=== PATIENT | male | born 1970 | race Caucasian/White ===

== ENCOUNTER → 2023-10-17 07:43 | Outpatient (CLI) | payer OTHER, SELFPAY ==
[2023-10-17 09:24] LABS: Hematocrit 43.8 % (41-53); Hemoglobin 15.4 g/dL (13.5-17.5); Mean Corpuscular HGB Conc 35.1 % (30-36); Mean Corpuscular Hemoglobin 31.2 PG (26-34); Platelet Count 179 X10^3/uL (150-400); Red Blood Cell Count 4.91 X10^6/uL (4.5-5.9); White Blood Cell Count 7.3 X10^3/uL (4.5-11.0)
[2023-10-17 09:25] LABS: Add Manual Diff / Slide Review YES
[2023-10-17 09:31] LABS: Hemoglobin A1C% w Est Avg Glu 5.4 % (4.0-6.0)
[2023-10-17 09:40] LABS: Alanine Aminotransferase 22 IU/L (<50); Albumin 3.9 g/dL (3.5-5.0); Albumin Globulin Ratio 1.3 (1.0-2.8); Alkaline Phosphatase 70 U/L (38-126); Aspartate Aminotransferase 26 IU/L (17-59); BUN Creatinine Ratio 26.1 (6-22); Bilirubin Total 0.9 mg/dL (0.2-1.3); Blood Urea Nitrogen 23 mg/dL (9-20); Calcium 9.1 mg/dL (8.4-10.2); Carbon Dioxide 29 mmol/L (22-32); Chloride 102 mmol/L (98-107); Cholesterol 146 mg/dL (140-199); Estimated Glomerular Filt Rate > 60 mL/min (>60); Globulin 2.9 g/dL (1.7-4.1); Glucose 102 mg/dL (70-100); HDL Cholesterol 43 mg/dL (40-60); HEMOLYSIS < 15 (0-50); LDL Cholesterol Calculated 90 mg/dL (<100); Potassium 3.9 mmol/L (3.4-5.1); Sodium 137 mmol/L (137-145); Total Protein 6.8 g/dL (6.3-8.2); Triglycerides 65 mg/dL (35-150)
[2023-10-17 10:05] LABS: Neutrophils Absolute Manual 3139 /uL (3000-5900); Platelet Estimate Adequate on smear; RBC Morphology Normal Morphology; Total Cells Counted 100
[2023-10-17 10:12] LABS: TSH w/ Reflex to FT4 1.94 uIU/mL (0.47-4.68)
== END ==
PROVIDERS: PCP Family Medicine; Referring Provider Family Medicine; Visit Provider Family Medicine
DX: E03.9 Hypothyroidism, unspecified (principal); E66.9 Obesity, unspecified
CPT/HCPCS: 36415; 80053; 80061; 83036; 84443; 85007; 85025

== ENCOUNTER → 2024-02-01 17:00 | Outpatient (CLI) | payer OTHER, SELFPAY ==
[2024-02-01 18:06] LABS: Influenza A - CEPHEID Flu A NEGATIVE (NEGATIVE); Influenza B - CEPHEID Flu B NEGATIVE (NEGATIVE); Respiratory Syncytial Virus Negative (Negative)
[2024-02-01 18:14] LABS: COVID-19 CEPHEID 4-PLEX PCR Negative (Negative)
== END ==
PROVIDERS: PCP Family Medicine; Visit Provider Physician Assistant Surgical
DX: R05.9 Cough, unspecified (principal)
CPT/HCPCS: 0241U

== ENCOUNTER 2024-05-11 10:20 | Emergency (ER) | payer OTHER, SELFPAY ==
[2024-05-11 10:28] VITALS: BP 141/90; PULSE 67; RESP 20; TEMP 36.6; O2SAT 98; BMI 40.8
--- NOTE | 2024-05-11 10:29 | DI.RAD.S_ITS ---
PROCEDURE: XR CHEST 1V INDICATIONS: chest pain TECHNIQUE: One view of the chest was acquired. COMPARISON: None. FINDINGS: Surgical changes and devices: None. Lungs and pleura: Lungs are clear. No pleural effusions or pneumothorax. Eventration of the right hemidiaphragm. Mediastinum: Mediastinal contours appear normal. Heart size is enlarged. Bones and chest wall: No suspicious bony lesions. Overlying soft tissues appear unremarkable. IMPRESSION: No acute cardiopulmonary abnormality is seen. Cardiomegaly. Dictated by: Darinel Cao M.D. on 05/11/2024 at 10:26 Approved by: Darinel Cao M.D. on 05/11/2024 at 10:26
[2024-05-11 10:37] VITALS: PULSE 58; O2SAT 96
--- NOTE | 2024-05-11 10:39 | ED_ITS ---
HPI - Chest Pain General Chief Complaint: Chest Pain Stated Complaint: pains in chest Time Seen by Provider: 05/11/24 10:22 Source: patient Mode of arrival: Ambulatory Limitations: no limitations History of Present Illness HPI narrative: Patient is a 53-year-old male who is here for evaluation of several months of off and on right-sided chest discomfort. He states he was currently having a ?ache? in the right side of his chest. Can not specifically explain when this particular episode started but he states that ?it has always been there? somewhat worse with movement of the right shoulder. No cough. No fevers. No shortness of breath. No abdominal pain. No back pain. Contact his primary doctor today to establish a follow-up appointment and mentioned that he was having chest discomfort and was advised to come to the emergency department for further evaluation. Related Data Home Medications Medication Instructions Recorded Confirmed atorvastatin 20 mg PO .HS 10/16/23 02/01/24 levothyroxine 25 mcg capsule 25 mcg PO DAILY 10/16/23 02/01/24 Previous Rx's Medication Instructions Recorded semaglutide 0.25 mg or 0.5 mg (2 0.25 mg (0.368 mL) SUBCUT QWEEK #3 11/20/23 mg/3 mL) subcutaneous pen injector mL benzonatate 200 mg capsule 200 mg PO BID PRN cough #30 caps 02/01/24 ipratropium bromide 21 mcg (0.03 2 spray intranasal BID PRN allergy 02/01/24 %) nasal spray symptoms #30 mL atorvastatin 20 mg tablet 20 mg PO BEDTIME #90 tabs 04/21/24 levetiracetam 1,000 mg tablet 1,000 mg PO ONCE #90 tabs 04/21/24 (Keppra) Allergies Allergy/AdvReac Type Severity Reaction Status Date / Time meloxicam Allergy Intermediate Rash Verified 02/01/24 16:58 Review of Systems Review of Systems Narrative: See HPI Patient History Medical History Seizure (~1980) Fracture (~2017) Hemorrhoid HLD (hyperlipidemia) Ulcerative proctitis (~2001) Hypothyroid (~2014) Obesity Epilepsy Surgical History (Updated 11/18/23 @ 20:19 by Anita Jacobsen) Anesthesia History of foot surgery History of knee surgery (~2010) History of cholecystectomy (~2017) History of shoulder surgery (~2018) Family History (Updated 11/18/23 @ 20:23 by Anita Jacobsen) Father Diabetes mellitus History of heart disease Hypertension Hyperlipidemia Mental health problem Grandfather Diabetes mellitus History of heart disease Hypertension Social History marital status: number of children: 1 housing: house occupational status: employed Previous occupational history: counselor at school, doing doctoral degree Smoking Status: Never smoker Smoking Status: Never smoker alcohol intake frequency: 0-2 drinks per day Substance Use Type: does not use Exam Initial Vital Signs Initial Vital Signs: Vital Signs Temperature 98 F 05/11/24 10:28 Pulse Rate 67 05/11/24 10:28 Respiratory Rate 20 05/11/24 10:28 Blood Pressure 141/90 H 05/11/24 10:28 Pulse Oximetry 98 05/11/24 10:28 Oxygen Delivery Method Room Air 05/11/24 10:28 Const General: cooperative, comfortable and No ill appearing HENMT Head: normal to inspection and normocephalic Chest Chest: No crepitus and No tenderness Resp Effort & Inspection: normal respiratory effort Auscultation: clear to auscultation bilaterally Cardio Rate: regular rate Rhythm: regular rhythm GI Inspection: normal to inspection and non-distended Skin General: no rashes or lesions noted Neuro General: patient alert, patient awake and patient oriented x3 Course Orders Ordered: ED Orders 05/11/24 10:29 XR chest 1V Stat EKG-12 Lead Stat 05/11/24 10:44 Complete Blood Count AUTO DIFF Stat Comprehensive Metabolic Panel Stat Lipase Stat Troponin & CK Cardiac Panel Stat Vital Signs Vital signs: Vital Signs - 8 hr 05/11/24 10:28 05/11/24 10:37 05/11/24 10:43 Temperature 98 F Pulse Rate 67 58 L 55 L Respiratory Rate 20 22 Blood Pressure 141/90 H Pulse Oximetry 98 96 96 Oxygen Delivery Method Room Air 05/11/24 10:43 05/11/24 11:00 05/11/24 11:00 Temperature Pulse Rate 51 L Respiratory Rate 16 Blood Pressure 144/89 H 144/76 H Pulse Oximetry 97 Oxygen Delivery Method 05/11/24 11:30 05/11/24 11:30 Temperature Pulse Rate 50 L Respiratory Rate 15 Blood Pressure 137/81 Pulse Oximetry 95 Oxygen Delivery Method MDM - Chest Pain Lab Data Attestation: I reviewed the patient's lab results. 05/11/24 10:44 05/11/24 10:44 Labs: Lab Results 05/11/24 Range/Units 10:44 WBC 4.8 (4.5-11.0) X10^3/uL RBC 5.04 (4.5-5.9) X10^6/uL Hgb 15.9 (13.5-17.5) g/dL Hct 45.5 (41-53) % MCV 90.3 (80-100) fL MCH 31.5 (26-34) PG MCHC 34.9 (30-36) % RDW 13.4 (11.6-14.8) % Plt Count 176 (150-400) X10^3/uL Neut % (Auto) 45.4 L (50-75) % Lymph % (Auto) 41.3 H (25-40) % [place] % (Auto) 10.6 (3-14) % Eos % (Auto) 2.4 (2-4) % Baso % (Auto) 0.3 (0-2) % Neut # (Auto) 2200 (1672-2538) /uL Lymph # (Auto) 2000 (3988-0752) /uL [place] # (Auto) 500 (0-900) /uL Eos # (Auto) 100 (0-450) /uL Baso # (Auto) 0 (0-100) /uL Sodium 137 (137-145) mmol/L Potassium 4.6 (3.4-5.1) mmol/L Chloride 102 (98-107) mmol/L Carbon Dioxide 31 (22-32) mmol/L BUN 24 H (9-20) mg/dL Creatinine 1.00 (0.66-1.25) mg/dL Estimated GFR > 60 (>60) mL/min BUN/Creatinine Ratio 24.0 H (6-22) Glucose 92 (70-100) mg/dL Calcium 8.9 (8.4-10.2) mg/dL Total Bilirubin 1.2 (0.2-1.3) mg/dL AST 39 (17-59) IU/L ALT 34 (<50) IU/L Alkaline Phosphatase 76 (38-126) U/L Total Creatine Kinase 240 H (55-170) U/L Troponin I < 0.012 (0.01-0.034) ng/mL Total Protein 7.6 (6.3-8.2) g/dL Albumin 4.6 (3.5-5.0) g/dL Globulin 3.0 (1.7-4.1) g/dL Albumin/Globulin Ratio 1.5 (1.0-2.8) Lipase 119 (23-300) U/L Imaging Data Chest x-ray: Radiologist's Impression: PROCEDURE: XR CHEST 1V INDICATIONS: chest pain TECHNIQUE: One view of the chest was acquired. COMPARISON: None. FINDINGS: Surgical changes and devices: None. Lungs and pleura: Lungs are clear. No pleural effusions or pneumothorax. Eventration of the right hemidiaphragm. Mediastinum: Mediastinal contours appear normal. Heart size is enlarged. Bones and chest wall: No suspicious bony lesions. Overlying soft tissues appear unremarkable. IMPRESSION: No acute cardiopulmonary abnormality is seen. Cardiomegaly. ECG Data Attestation: I personally reviewed and interpreted this ECG as follows: Interpretation: Sinus bradycardia Ventricular rate of 53 Normal axis Normal QRS Normal QTC No ST T wave changes MDM Narrative Medical decision making narrative: Patient has had months of right-sided chest discomfort. Unremarkable EKG. Negative troponin. Negative chest x-ray. Low suspicion for ACS. No skin changes concerning for zoster. Afebrile. Low suspicion for pneumonia. Not hypoxic. Not tachypneic. Low suspicion for pulmonary embolism. Will discharge patient home with instructions to contact his primary doctor for follow-up. He was given return precautions. He expressed understanding and agreement. Discharge Plan Departure Patient Disposition: Home Clinical Impression: Atypical chest pain Instructions: DI for Atypical Chest Pain Activity Restrictions/Additional Instructions: Recommend that you contact your primary care provider for a follow-up. Your workup here in the emergency department today is very reassuring. Return to the emergency department for new or worsening symptoms. Prescriptions: No Action atorvastatin 20 mg PO .HS benzonatate 200 mg capsule 200 mg PO BID PRN (Reason: cough) Qty: 30 0RF ipratropium bromide 21 mcg (0.03 %) spray,non-aerosol 2 spray intranasal BID PRN (Reason: allergy symptoms) Qty: 30 0RF Rx Instructions: administer into each nostril levothyroxine 25 mcg capsule 25 mcg PO DAILY semaglutide 0.25 mg or 0.5 mg (2 mg/3 mL) pen injector 0.25 mg SUBCUT QWEEK Qty: 3 1RF Rx Instructions: for 4 weeks -- please send generic atorvastatin 20 mg tablet 20 mg PO BEDTIME Qty: 90 1RF levetiracetam [Keppra] 1,000 mg tablet 1,000 mg PO ONCE Qty: 90 1RF Rx Instructions: sorry...this is the correct script, please cancel previous one sent earlier today Referrals: Shyanne Guo MD [Primary Care Provider] - Stand Alone Forms: Patient Portal/API
[2024-05-11 10:43] VITALS: BP 144/89; PULSE 55; RESP 22; O2SAT 96
--- NOTE | 2024-05-11 10:45 | EKG_ITS ---
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
[2024-05-11 10:52] LABS: Add Manual Diff / Slide Review NO; Basophils Absolute Auto 0 /uL (0-100); Basophils Percent Auto 0.3 % (0-2); Eosinophils Absolute Auto 100 /uL (0-450); Eosinophils Percent Auto 2.4 % (2-4); Hematocrit 45.5 % (41-53); Hemoglobin 15.9 g/dL (13.5-17.5); Lymphocytes Absolute Auto 2000 /uL (1100-4500); Lymphocytes Percent Auto 41.3 % (25-40); Mean Corpuscular HGB Conc 34.9 % (30-36); Mean Corpuscular Hemoglobin 31.5 PG (26-34); Mean Corpuscular Volume 90.3 fL (80-100); Monocytes Absolute Auto 500 /uL (0-900); Monocytes Percent Auto 10.6 % (3-14); Neutrophils Absolute Auto 2200 /uL (1500-7000); Neutrophils Percent Auto 45.4 % (50-75); Platelet Count 176 X10^3/uL (150-400); Red Blood Cell Count 5.04 X10^6/uL (4.5-5.9); Red Cell Distribution Width 13.4 % (11.6-14.8); White Blood Cell Count 4.8 X10^3/uL (4.5-11.0)
[2024-05-11 11:00] VITALS: BP 144/76; PULSE 51; RESP 16; O2SAT 97
[2024-05-11 11:08] LABS: Alanine Aminotransferase 34 IU/L (<50); Albumin 4.6 g/dL (3.5-5.0); Albumin Globulin Ratio 1.5 (1.0-2.8); Alkaline Phosphatase 76 U/L (38-126); Aspartate Aminotransferase 39 IU/L (17-59); Bilirubin Total 1.2 mg/dL (0.2-1.3); Blood Urea Nitrogen 24 mg/dL (9-20); Calcium 8.9 mg/dL (8.4-10.2); Carbon Dioxide 31 mmol/L (22-32); Chloride 102 mmol/L (98-107); Creatine Kinase 240 U/L (55-170); Estimated Glomerular Filt Rate > 60 mL/min (>60); Glucose 92 mg/dL (70-100); HEMOLYSIS < 15 (0-50); Lipase 119 U/L (23-300); Potassium 4.6 mmol/L (3.4-5.1); Sodium 137 mmol/L (137-145); Total Protein 7.6 g/dL (6.3-8.2)
[2024-05-11 11:19] LABS: Troponin I < 0.012 ng/mL (0.01-0.034)
[2024-05-11 11:30] VITALS: BP 137/81; PULSE 50; RESP 15; O2SAT 95
== END 2024-05-11 11:42 | disposition home or self-care (01) ==
PROVIDERS: Emergency Provider Emergency Medicine; PCP Family Medicine
DX: R07.89 Other chest pain (principal)
CPT/HCPCS: 36415; 71045; 80053; 82550; 83690; 84484; 85025; 93005; 93010; 99283; 99284

== ENCOUNTER → 2024-05-16 08:26 | Outpatient (CLI) | payer OTHER, SELFPAY ==
[2024-05-16 10:31] LABS: TSH w/ Reflex to FT4 1.61 uIU/mL (0.47-4.68)
== END ==
LOC: LAB 08:27
PROVIDERS: PCP Family Medicine; Referring Provider Family Medicine; Visit Provider Family Medicine
DX: E03.9 Hypothyroidism, unspecified (principal)
CPT/HCPCS: 36415; 84443

== ENCOUNTER → 2024-06-03 07:48 | Outpatient (CLI) | payer OTHER, SELFPAY ==
--- NOTE | 2024-06-03 19:58 | DI.NM.S_ITS ---
DATE OF SERVICE: 06/03/2024 EXERCISE TREADMILL STRESS TEST PROCEDURE: Exercise treadmill stress test without imaging. ORDERING PROVIDER: Shyanne Guo M.D. INDICATIONS: The patient is a 54-year-old male with recent atypical right-sided chest discomfort. FINDINGS: 1. The patient was able to exercise for 6 minutes 58 seconds on a standard Rodger protocol suggesting moderately reduced exercise capacity with SHERMAN of +20%, achieving 10.1 METS. 2. He had a normal heart rate and blood pressure response to exercise, achieving a maximum heart rate of 161 BPM (98% of his predicted maximum). 3. Prior to stress testing, the patient had a baseline resting right- sided pleuritic chest discomfort that remained unchanged with exercise and no had anginal symptoms with stress. 4. The resting ECG showed sinus rhythm with normal ST segments. With stress, there are no significant ST-segment shifts although he develops frequent PVCs early in exercise, at times, in a bigeminal pattern, but subsequently generally improving with stress. There was no other complex ventricular ectopy. IMPRESSION: 1. Normal exercise treadmill stress test for ischemia. 2. Moderately reduced exercise capacity without angina but with persistent atypical chest discomfort that was present at rest. 3. Frequent PVCs early in exercise, occasionally in a bigeminal pattern but generally improving with additional stress and without other complex ventricular ectopy. Jordan Sriram - LAILA/brandyn/GRAHAM doc#: [id number]/job#: [id number] dd: 06/03/2024 17:17:00 dt: 06/03/2024 19:44:00 DICTATING MD/COPIES TO: Malik Loving MD; Shyanne Guo M.D. COPIES MNE: CHERYL;
== END ==
PROVIDERS: PCP Family Medicine; Referring Provider Family Medicine; Visit Provider Family Medicine
DX: R07.89 Other chest pain (principal)
CPT/HCPCS: 93017

== ENCOUNTER → 2024-10-24 08:41 | Outpatient (CLI) | payer OTHER, SELFPAY ==
[2024-10-24 09:59] LABS: Add Manual Diff / Slide Review NO; Basophils Absolute Auto 0 /uL (0-100); Basophils Percent Auto 0.6 % (0-2); Eosinophils Absolute Auto 400 /uL (0-450); Eosinophils Percent Auto 6.8 % (2-4); Hematocrit 45.6 % (41-53); Hemoglobin 15.7 g/dL (13.5-17.5); Lymphocytes Absolute Auto 2200 /uL (1100-4500); Lymphocytes Percent Auto 39.2 % (25-40); Mean Corpuscular HGB Conc 34.4 % (30-36); Mean Corpuscular Hemoglobin 31.5 PG (26-34); Mean Corpuscular Volume 91.6 fL (80-100); Monocytes Absolute Auto 400 /uL (0-900); Monocytes Percent Auto 7.2 % (3-14); Neutrophils Absolute Auto 2600 /uL (1500-7000); Neutrophils Percent Auto 46.2 % (50-75); Platelet Count 206 X10^3/uL (150-400); Red Blood Cell Count 4.98 X10^6/uL (4.5-5.9); White Blood Cell Count 5.5 X10^3/uL (4.5-11.0)
[2024-10-24 10:10] LABS: Hemoglobin A1C% w Est Avg Glu 5.3 % (4.0-6.0)
[2024-10-24 11:03] LABS: Vitamin B12 795 pg/mL (239-931)
== END ==
PROVIDERS: PCP Family Medicine; Referring Provider Family Medicine; Visit Provider Family Medicine
DX: E78.2 Mixed hyperlipidemia (principal); E03.9 Hypothyroidism, unspecified; E66.01 Morbid (severe) obesity due to excess calories; Z68.41 Body mass index [BMI] 40.0-44.9, adult
CPT/HCPCS: 36415; 82607; 83036; 85025

== ENCOUNTER → 2025-03-05 07:07 | Outpatient (CLI) | payer OTHER, SELFPAY ==
[2025-03-05 07:58] LABS: Add Manual Diff / Slide Review NO; Basophils Absolute Auto 0 /uL (0-100); Basophils Percent Auto 0.5 % (0-2); Eosinophils Absolute Auto 300 /uL (0-450); Eosinophils Percent Auto 4.3 % (2-4); Hematocrit 44.9 % (41-53); Hemoglobin 15.6 g/dL (13.5-17.5); Lymphocytes Absolute Auto 2100 /uL (1100-4500); Lymphocytes Percent Auto 30.3 % (25-40); Mean Corpuscular HGB Conc 34.8 % (30-36); Mean Corpuscular Hemoglobin 31.4 PG (26-34); Mean Corpuscular Volume 90.3 fL (80-100); Monocytes Absolute Auto 500 /uL (0-900); Monocytes Percent Auto 7.2 % (3-14); Neutrophils Absolute Auto 4000 /uL (1500-7000); Neutrophils Percent Auto 57.7 % (50-75); Platelet Count 194 X10^3/uL (150-400); Red Blood Cell Count 4.97 X10^6/uL (4.5-5.9); Red Cell Distribution Width 13.2 % (11.6-14.8); White Blood Cell Count 6.9 X10^3/uL (4.5-11.0)
[2025-03-05 08:43] LABS: Cholesterol 132 mg/dL (140-199); HDL Cholesterol 45 mg/dL (40-60); LDL Cholesterol Calculated 72 mg/dL (<100); Triglycerides 73 mg/dL (35-150)
[2025-03-05 09:07] LABS: TSH w/ Reflex to FT4 3.36 uIU/mL (0.47-4.68)
[2025-03-05 15:32] LABS: Alanine Aminotransferase 21 IU/L (<50); Albumin 4.2 g/dL (3.5-5.0); Albumin Globulin Ratio 1.8 (1.0-2.8); Alkaline Phosphatase 77 U/L (38-126); Aspartate Aminotransferase 26 IU/L (17-59); BUN Creatinine Ratio 30.2 (6-22); Bilirubin Total 1.1 mg/dL (0.2-1.3); Blood Urea Nitrogen 26 mg/dL (9-20); Calcium 8.9 mg/dL (8.4-10.2); Carbon Dioxide 25 mmol/L (22-32); Chloride 106 mmol/L (98-107); Estimated Glomerular Filt Rate > 60 mL/min (>60); Globulin 2.4 g/dL (1.7-4.1); Glucose 99 mg/dL (70-99); HEMOLYSIS < 15 (0-50); Potassium 4.3 mmol/L (3.4-5.1); Sodium 139 mmol/L (137-145); Total Protein 6.6 g/dL (6.3-8.2)
[2025-03-06 07:40] LABS: PSA, Total 0.4 ng/mL (0.0-4.0)
== END ==
PROVIDERS: PCP Family Medicine; Referring Provider Family Medicine; Visit Provider Family Medicine
DX: Z13.6 Encounter for screening for cardiovascular disorders (principal); R31.9 Hematuria, unspecified; R25.1 Tremor, unspecified; E78.5 Hyperlipidemia, unspecified; E03.9 Hypothyroidism, unspecified; E78.2 Mixed hyperlipidemia; G40.802 Other epilepsy, not intractable, without status epilepticus
CPT/HCPCS: 36415; 80053; 80061; 84153; 84154; 84443; 85025